=== PATIENT | male | born 1975 | race Two or more races ===

== ENCOUNTER 2024-05-26 10:49 | Outpatient (AMB) | payer MEDICAID, SELFPAY ==
[2024-05-26 10:54] VITALS: BP 136/88; PULSE 66; RESP 18; TEMP 36.2; O2SAT 97; BMI 32.6
--- NOTE | 2024-05-26 10:54 | PD.RESCLINIC ---
Vital Signs 05/26/24 10:54 Height 5 ft 11 in Height Method Stated Weight 106.311 kg Weight Measurement Method Standing Scale BMI 32.6 BP 136/88 H Blood Pressure Source Automatic Cuff Blood Pressure Location Left Upper Arm Position Sitting Respiration 18 Pulse 66 Pulse Source Monitor Temp 97.2 F Temp Source Oral Pulse Oximetry (%) 97 Oxygen Delivery Method Room Air Allergies/Meds Allergies & Medications Allergies No Known Allergies Allergy (Verified 05/26/24 10:55) Medication Reconciliation acamprosate 333 mg tablet,delayed release 666 mg (2 x 333 mg) PO TID #120 tabs 08/01/23 [Rx Confirmed 05/26/24] cetirizine 10 mg capsule (Zyrtec) 10 mg PO QDAY PRN allergy symptoms #30 caps 11/10/23 [Rx Confirmed 05/26/24] cholecalciferol (vitamin D3) 1,250 mcg (50,000 unit) capsule 1,250 mcg PO QWEEK #4 caps 01/23/24 [Rx Confirmed 05/26/24] fluticasone propionate 50 mcg/actuation nasal spray,suspension (Allergy Relief (fluticasone)) 2 spray intranasal QDAY #16 grams 05/26/24 [Rx] nadolol 20 mg tablet 20 mg PO QDAY #60 tabs 05/26/24 [Rx] pantoprazole 40 mg tablet,delayed release 40 mg PO BID 1 month #60 tabs 05/26/24 [Rx] MA Intake Visit Data Collection New Patient or Established: Established Patient (seen at [facility] within 3 years) Seen by Clinical Staff ONLY (RN/MA): No Pain Present Currently: No Pain scale:: 0 Pain Scale Used: Jiménez-Ward/Numerical [employer] Department Supervisor Required: No PCP or OBGYN visit in last 3 months: Yes Do You Feel Safe at Home: Yes Authorities Contacted: N/A Smoking Status Smoking Status: Never smoker Immunization / Flu Flu Vaccine in the Last 12 Months: No Flu Vaccine Exclusion Criteria: No Exclusion Criteria Past Medical History Past Medical History NEUROLOGIC: Negative Neurological Disorders or Seizures CARDIAC: Positive Hypertension; Negative Cardiac Disorders or Congestive Heart Failure RESPIRATORY: Negative Chronic Obstructive Pulmonary Disease (COPD) or Asthma GASTROINTESTINAL: Positive Gastrointestinal Disorders, Gastrointestinal Bleed and Esophageal Varices GENITOURINARY: Negative Genitourinary Disorders or Renal Disease ENDOCRINE: Negative Endocrine Disorders, Diabetes Mellitus Type 1 or Diabetes Mellitus Type 2 HEMATOLOGIC: Negative Blood Disorders or Sickle Cell Disease OTHER HISTORY: Negative Autoimmune Disease, Blood Transfusions, Anesthesia Reactions, MRSA, VRSA or Vancomycin-Resistant Enterococci Family History FAMILY HISTORY: Positive Family Respiratory Disorders and Family Cardiac Disorders; Negative Family Psychiatric Problems, Family Gastrointestinal Problems, Family Cancer, Family Surgery or Family Anesthesia Reaction Surgical History SURGICAL: Positive Abdominal Surgery; Negative Cardiac Surgery, Endocrine Surgery, Ear Surgery, Eye Surgery, Nose Surgery, Oral Surgery, Joint Replacement or Neurologic Surgery Social History SMOKING STATUS: Smoking status: Never smoker ALCOHOL: Alcohol Intake: Former (quit 6 months ago) ALCOHOL FREQUENCY: Alcohol Intake Frequency: 3 or More Drinks per Day HOUSING: Housing: House LIVES WITH: Lives With: Significant Other Patient Portal Questionaires Social History Living Situation History Housing: House Tobacco History Smoking Status: Never smoker Alcohol History Alcohol Intake: Former (quit 6 months ago) Alcohol Intake Frequency: 3 or More Drinks per Day Alcohol Intake Frequency Other:: 25 year Substance Use History Substance Use: daily marijuana Domestic Abuse History Do You Feel Safe at Home: Yes Review of Systems Report any current symptoms Only answer those that you have currently: Past Medical History Past Medical History Have you ever been diagnosed with any of the following: Neurological Problems Seizures: No Cardiology Problems Congestive Heart Failure: No Hypertension: Yes Respiratory Problems Chronic Obstructive Pulmonary Disease (COPD): No Asthma: No Stomache/Intestinal Problems Gastrointestinal Bleed: Yes Esophageal Varices: Yes Genital/Urinary Problems Renal Disease: No Endocrine Problems Diabetes Mellitus Type 1: No Diabetes Mellitus Type 2: No Blood Problems Sickle Cell Disease: No Other Problems Autoimmune Disease: No Blood Transfusions: No Anesthesia Reactions: No MRSA: No VRSA: No Vancomycin-Resistant Enterococci: No History of Present Illness HPI Narrative Patient is a 48-year-old male with past medical history of esophageal varices and seasonal allergies who came to the clinic just for follow-up from previous visits. Patient is doing well and is scheduled to see gastroenterology in [place] in a couple of weeks. He states that he discontinued Protonix for short period for a bowel study but off of the medication he continued to have significant amount of symptoms so he continued the medication once appropriate. He is still taking the nadolol as well for esophageal varices and I counseled him to follow-up with his GI doctor to see if he needs to continue that medication. Patient is 1 year off of alcohol and doing well without any kind of desire to drink. We will continue without acamprosate. Will order annual labs for physical exam. Objective/Exam Narrative Physical exam: GENERAL: Alert and oriented x 3. No acute distress. Well-nourished. EYES: EOMI. Anicteric. HEENT: Moist mucous membranes. No scleral icterus. No cervical lymphadenopathy. LUNGS: Clear to auscultation bilaterally. No accessory muscle use. CARDIOVASCULAR: Regular rate and rhythm. No murmur. No JVD. ABDOMEN: Soft, non-tender and non-distended. No palpable masses. EXTREMITIES: All 4 extremeties intact. No edema. Nontender. SKIN: No rashes or lesions. Warm. NEUROLOGIC: No focal neurological deficits. CN II-XII grossly intact, but not individually tested. PSYCHIATRIC: Cooperative. Appropriate mood and affect. Assessment & Plan Diagnosis / Problem List (1) Annual physical exam: Status: Acute Assessment & Plan: Patient is doing well without any complaints other than GERD like symptoms Plan: Continue with Protonix 40 Mg twice daily and nadolol for esophageal varices and GI bleed Follow-up with GI in regards to continuation of these medications Will order annual labs for the patient including CBC to assess for anemia, CMP to assess for liver enzymes, UA to assess for any proteinuria, vitamin D levels, TSH, A1c and lipid panel Follow-up in 2 weeks Orders: Orders CBC Today Comprehensive Metabolic Panel Today Z00.00 - Encounter for general adult medical examination without abnormal findings Vitamin D, 1,25-Dihydroxy* Today Z00.00 - Encounter for general adult medical examination without abnormal findings Ambulatory Hemoglobin A1C Today Urinalysis Today Z00.00 - Encounter for general adult medical examination without abnormal findings Vitamin D 25 Hydroxy Total Today Z00.00 - Encounter for general adult medical examination without abnormal findings Thyroid Stimulating Hormone Today Z00.00 - Encounter for general adult medical examination without abnormal findings Lipid Panel Today Z00.00 - Encounter for general adult medical examination without abnormal findings Office Procedures [facility] Level of Care Nursing/Assessment Patient Status: Established Patient Nursing Assessment/Reassessment: Medication Reconciliation, Update PMH in EMR and Vital Signs Coordination of Care: Complex Care and Chronic Disease 1-5, Consent,records obtained, informed consent, Education Simp Pt/Fam, Lab and Imaging orders and Staff clarify orders Established Patient Charge Established Patient Point Assignment: 100 Established Patient Point Charge: Level 3 (80-115)
== END 2024-05-26 11:29 | disposition home or self-care (01) ==
LOC: HODAHC 10:49
PROVIDERS: PCP Student in an Organized Health Care Education/Training Program; Referring Provider Student in an Organized Health Care Education/Training Program; Supervising Provider Internal Medicine; Visit Provider Student in an Organized Health Care Education/Training Program
DX: Z00.00 Encounter for general adult medical examination without abnormal findings (principal); Z87.19 Personal history of other diseases of the digestive system
CPT/HCPCS: 99213; G0463

== ENCOUNTER 2024-06-23 11:04 | Outpatient (AMB) | payer MEDICAID, SELFPAY ==
--- NOTE | 2024-06-23 11:17 | PD.RESCLINIC ---
Vital Signs 06/23/24 11:18 Height 1.8 m Height Method Stated Weight 107.161 kg Weight Measurement Method Standing Scale BMI 33.0 BP 130/78 Blood Pressure Source Automatic Cuff Blood Pressure Location Left Upper Arm Position Sitting Respiration 16 Pulse 62 Pulse Source Monitor Temp 97.2 F Temp Source Oral Pulse Oximetry (%) 96 Oxygen Delivery Method Room Air Allergies/Meds Allergies & Medications Allergies No Known Allergies Allergy (Verified 06/23/24 11:19) Medication Reconciliation acamprosate 333 mg tablet,delayed release 666 mg (2 x 333 mg) PO TID #120 tabs 08/01/23 [Rx Confirmed 06/23/24] cetirizine 10 mg capsule (Zyrtec) 10 mg PO QDAY PRN allergy symptoms #30 caps 11/10/23 [Rx Confirmed 06/23/24] fluticasone propionate 50 mcg/actuation nasal spray,suspension (Allergy Relief (fluticasone)) 2 spray intranasal BID #16 grams 05/26/24 [Rx Confirmed 06/23/24] nadolol 20 mg tablet 20 mg PO QDAY #60 tabs 05/26/24 [Rx Confirmed 06/23/24] pantoprazole 40 mg tablet,delayed release 40 mg PO BID 1 month #60 tabs 05/26/24 [Rx Confirmed 06/23/24] cholecalciferol (vitamin D3) 1,250 mcg (50,000 unit) capsule 1,250 mcg PO QWEEK #10 caps 06/23/24 [Rx] MA Intake Visit Data Collection New Patient or Established: Established Patient (seen at [facility] within 3 years) Seen by Clinical Staff ONLY (RN/MA): No Pain Present Currently: No Pain scale:: 0 Pain Scale Used: Jiménez-Ward/Numerical Bias Cutter Helper Required: No PCP or OBGYN visit in last 3 months: Yes Date of Last PCP or OBGYN visit: 06/23/24 Hx Now: No Do You Feel Safe at Home: Yes Authorities Contacted: N/A Smoking Status Smoking Status: Never smoker Immunization / Flu Flu Vaccine in the Last 12 Months: Yes Flu Vaccine Exclusion Criteria: No Exclusion Criteria Past Medical History Past Medical History NEUROLOGIC: Negative Neurological Disorders or Seizures CARDIAC: Positive Hypertension; Negative Cardiac Disorders or Congestive Heart Failure RESPIRATORY: Negative Chronic Obstructive Pulmonary Disease (COPD) or Asthma GASTROINTESTINAL: Positive Gastrointestinal Disorders, Gastrointestinal Bleed and Esophageal Varices GENITOURINARY: Negative Genitourinary Disorders or Renal Disease ENDOCRINE: Negative Endocrine Disorders, Diabetes Mellitus Type 1 or Diabetes Mellitus Type 2 HEMATOLOGIC: Negative Blood Disorders or Sickle Cell Disease OTHER HISTORY: Negative Autoimmune Disease, Blood Transfusions, Anesthesia Reactions, MRSA, VRSA or Vancomycin-Resistant Enterococci Family History FAMILY HISTORY: Positive Family Respiratory Disorders and Family Cardiac Disorders; Negative Family Psychiatric Problems, Family Gastrointestinal Problems, Family Cancer, Family Surgery or Family Anesthesia Reaction Surgical History SURGICAL: Positive Abdominal Surgery; Negative Cardiac Surgery, Endocrine Surgery, Ear Surgery, Eye Surgery, Nose Surgery, Oral Surgery, Joint Replacement or Neurologic Surgery Social History SMOKING STATUS: Smoking status: Never smoker ALCOHOL: Alcohol Intake: Former (quit 6 months ago) ALCOHOL FREQUENCY: Alcohol Intake Frequency: 3 or More Drinks per Day HOUSING: Housing: House LIVES WITH: Lives With: Significant Other Patient Portal Questionaires PHQ-9 PHQ-2 Over the last 2 weeks, how often have you been bothered by any of the following problems? 1. Little interest or pleasure in doing things: not at all 2. Feeling down, depressed, or hopeless: not at all Total score: 0 Depression screen completed yes Social History Living Situation History Housing: House Tobacco History Smoking Status: Never smoker Alcohol History Alcohol Intake: Former (quit 6 months ago) Alcohol Intake Frequency: 3 or More Drinks per Day Alcohol Intake Frequency Other:: 25 year Substance Use History Substance Use: daily marijuana Domestic Abuse History Do You Feel Safe at Home: Yes Review of Systems Report any current symptoms Only answer those that you have currently: Past Medical History Past Medical History Have you ever been diagnosed with any of the following: Neurological Problems Seizures: No Cardiology Problems Congestive Heart Failure: No Hypertension: Yes Respiratory Problems Chronic Obstructive Pulmonary Disease (COPD): No Asthma: No Stomache/Intestinal Problems Gastrointestinal Bleed: Yes Esophageal Varices: Yes Genital/Urinary Problems Renal Disease: No Endocrine Problems Diabetes Mellitus Type 1: No Diabetes Mellitus Type 2: No Blood Problems Sickle Cell Disease: No Other Problems Autoimmune Disease: No Blood Transfusions: No Anesthesia Reactions: No MRSA: No VRSA: No Vancomycin-Resistant Enterococci: No History of Present Illness HPI Narrative Mr. Krishnamurthy is a 48-year-old male with past medical history of cirrhosis complicated with esophageal varices requiring banding who has been compliant with nonalcohol use for more than 2 years. Patient is doing fairly well without complaints and states that he has recently been placed upon [facility]'s transplant list and that he is pending further workup along with assessment by their therapy group. He is pending an ultrasound of the liver in 2 days. Review of Systems Review of Systems Systems Reviewed: All systems reviewed, normal except as documented Objective/Exam Narrative Physical exam: GENERAL: Alert and oriented x 3. No acute distress. Well-nourished. EYES: EOMI. Anicteric. HEENT: Moist mucous membranes. No scleral icterus. No cervical lymphadenopathy. LUNGS: Clear to auscultation bilaterally. No accessory muscle use. CARDIOVASCULAR: Regular rate and rhythm. No murmur. No JVD. ABDOMEN: Soft, non-tender and non-distended. No palpable masses. EXTREMITIES: All 4 extremeties intact. No edema. Nontender. SKIN: No rashes or lesions. Warm. NEUROLOGIC: No focal neurological deficits. CN II-XII grossly intact, but not individually tested. PSYCHIATRIC: Cooperative. Appropriate mood and affect. Assessment & Plan Diagnosis / Problem List (1) Cirrhosis: Status: Acute Plan: Now on transplant list. Continued abstinence from alcohol. To have ultrasound in 2 days. (2) Esophageal varices: Status: Acute Assessment & Plan: Stable, no evidence of bleeding. (3) Vitamin D deficiency: Status: Acute Assessment & Plan: Vitamin D levels improved to 41.7 from 15.9 Plan: Will refill cholecalciferol 1250 mg to be taken once a week for the next 8 weeks (4) Annual physical exam: Status: Acute Assessment & Plan: Patient's labs are reviewed Fasting blood glucose 104 and A1c of 5.7 Alkaline phosphatase mildly elevated at 204 Plan: Continued improvement in patient's labs with no dyslipidemia or diabetes noted. Vitamin D level normal at 41.7 but will continue to replete Baseline creatinine 0.9 All baseline health parameters appear to be good TSH within normal limits Will follow-up in 3 months or as needed Physician Billing Established Patient Established Patient: E/M Level 3-CPT 22052 Office Procedures [facility] Level of Care Nursing/Assessment Patient Status: Established Patient Nursing Assessment/Reassessment: BP Monitoring, Medication Reconciliation, Update PMH in EMR and Vital Signs Coordination of Care: Complex Care and Chronic Disease 1-5, Consent,records obtained, informed consent, Education Simp Pt/Fam, Lab and Imaging orders and Staff clarify orders Established Patient Charge Established Patient Point Assignment: 115 Established Patient Point Charge: EP Level 3 (33-115)
[2024-06-23 11:18] VITALS: BP 130/78; PULSE 62; RESP 16; TEMP 36.2; O2SAT 96; BMI 33.0
== END 2024-06-23 12:07 | disposition home or self-care (01) ==
LOC: HODAHC 11:04
PROVIDERS: PCP Student in an Organized Health Care Education/Training Program; Referring Provider Student in an Organized Health Care Education/Training Program; Supervising Provider Internal Medicine; Visit Provider Student in an Organized Health Care Education/Training Program
DX: K74.60 Unspecified cirrhosis of liver (principal); I85.00 Esophageal varices without bleeding; Z76.82 Awaiting organ transplant status; E55.9 Vitamin D deficiency, unspecified
CPT/HCPCS: 99213; G0463

== ENCOUNTER → 2024-07-02 | Outpatient (CLI) | payer MEDICAID, SELFPAY ==
--- NOTE | 2024-07-02 09:45 | XR_ITS ---
Examination: Abdomen sonogram, complete Date and time of exam: July 02, 2024 0957 hours INDICATIONS: Diagnosis cirrhosis one year ago. Technique: Multiple real-time grayscale transabdominal sonographic images of the abdomen have been obtained. Findings: Normal gallbladder Common bile duct 0.4 cm Pancreas obscured by bowel gas Mid and distal aorta visualized not enlarged Liver 15.3 cm irregular contour no focal liver lesions fatty infiltration is present Normal hepatopedal portal venous flow Patent IVC Right kidney 14.5 x 5.7 x 5.9 cm cortex 1.6 cm Left kidney 13.1 x 5.7 x 5.4 cm renal cortex 2.9 cm Moderate renal parenchymal scar formation No hydronephrosis Spleen 11.9 cm IMPRESSION: Normal gallbladder Cirrhosis no focal liver lesions Moderate bilateral renal parenchymal scar formation
== END | disposition home or self-care (01) ==
LOC: CDIM 09:33
PROVIDERS: Referring Provider Internal Medicine Gastroenterology; Visit Provider Internal Medicine Gastroenterology
DX: K74.60 Unspecified cirrhosis of liver (principal); N28.89 Other specified disorders of kidney and ureter
CPT/HCPCS: 76700

== ENCOUNTER 2024-11-19 15:36 | Outpatient (AMB) | payer MEDICAID, SELFPAY ==
[2024-11-19 15:50] VITALS: BP 134/82; PULSE 63; RESP 18; TEMP 36.8; O2SAT 96
--- NOTE | 2024-11-19 15:50 | ACNOTE_ITS ---
Vital Signs 11/19/24 15:50 Weight 116.176 kg Weight Measurement Method Standing Scale BP 134/82 H Blood Pressure Source Automatic Cuff Blood Pressure Location Right Upper Arm Position Sitting Respiration 18 Pulse 63 Pulse Source Monitor Temp 98.3 F Temp Source Temporal Artery Scan Pulse Oximetry (%) 96 Oxygen Delivery Method Room Air Allergies/Meds Allergies & Medications Allergies No Known Allergies Allergy (Verified 11/19/24 15:53) Medication Reconciliation acamprosate 333 mg tablet,delayed release 666 mg (2 x 333 mg) PO TID #120 tabs 08/01/23 [Rx Confirmed 11/19/24] cetirizine 10 mg capsule (Zyrtec) 10 mg PO QDAY PRN allergy symptoms #30 caps 11/10/23 [Rx Confirmed 11/19/24] fluticasone propionate 50 mcg/actuation nasal spray,suspension (Allergy Relief (fluticasone)) 2 spray intranasal BID #16 grams 05/26/24 [Rx Confirmed 11/19/24] cholecalciferol (vitamin D3) 1,250 mcg (50,000 unit) capsule 1,250 mcg PO QWEEK #10 caps 06/23/24 [Rx Confirmed 11/19/24] nadolol 20 mg tablet 20 mg PO QDAY #30 tabs 07/13/24 [Rx Confirmed 11/19/24] pantoprazole 40 mg tablet,delayed release 40 mg PO QDAY esophageal varices 1 month #30 tabs 11/19/24 [Rx] spironolactone 25 mg tablet 25 mg PO QDAY Cirrhosis 1 month #30 tabs 11/19/24 [Rx] MA Intake Visit Data Collection New Patient or Established: Established Patient (seen at [facility] within 3 years) Seen by Clinical Staff ONLY (RN/MA): No Pain Present Currently: No Pain scale:: 0 Pain Scale Used: Jiménez-Ward/Numerical S[employer] Operator Required: No PCP or OBGYN visit in last 3 months: No Hx Now: No Do You Feel Safe at Home: Yes Authorities Contacted: N/A Smoking Status Smoking Status: Never smoker Immunization / Flu Flu Vaccine in the Last 12 Months: No Flu Vaccine Exclusion Criteria: No Exclusion Criteria Past Medical History Past Medical History NEUROLOGIC: Negative Neurological Disorders or Seizures CARDIAC: Positive Hypertension; Negative Cardiac Disorders or Congestive Heart Failure RESPIRATORY: Negative Chronic Obstructive Pulmonary Disease (COPD) or Asthma GASTROINTESTINAL: Positive Gastrointestinal Disorders, Gastrointestinal Bleed and Esophageal Varices GENITOURINARY: Negative Genitourinary Disorders or Renal Disease ENDOCRINE: Negative Endocrine Disorders, Diabetes Mellitus Type 1 or Diabetes Mellitus Type 2 HEMATOLOGIC: Negative Blood Disorders or Sickle Cell Disease OTHER HISTORY: Negative Autoimmune Disease, Blood Transfusions, Anesthesia Reactions, MRSA, VRSA or Vancomycin-Resistant Enterococci Family History FAMILY HISTORY: Positive Family Respiratory Disorders and Family Cardiac Disorders; Negative Family Psychiatric Problems, Family Gastrointestinal Problems, Family Cancer, Family Surgery or Family Anesthesia Reaction Surgical History SURGICAL: Positive Abdominal Surgery; Negative Cardiac Surgery, Endocrine Surgery, Ear Surgery, Eye Surgery, Nose Surgery, Oral Surgery, Joint Replacement or Neurologic Surgery Social History SMOKING STATUS: Smoking status: Never smoker ALCOHOL: Alcohol Intake: Former (quit 6 months ago) ALCOHOL FREQUENCY: Alcohol Intake Frequency: 3 or More Drinks per Day HOUSING: Housing: House LIVES WITH: Lives With: Significant Other Patient Portal Questionaires PHQ-9 PHQ-2 Over the last 2 weeks, how often have you been bothered by any of the following problems? 1. Little interest or pleasure in doing things: not at all Social History Living Situation History Housing: House Tobacco History Smoking Status: Never smoker Alcohol History Alcohol Intake: Former (quit 6 months ago) Alcohol Intake Frequency: 3 or More Drinks per Day Alcohol Intake Frequency Other:: 25 year Substance Use History Substance Use: daily marijuana Domestic Abuse History Do You Feel Safe at Home: Yes Review of Systems Report any current symptoms Only answer those that you have currently: Past Medical History Past Medical History Have you ever been diagnosed with any of the following: Neurological Problems Seizures: No Cardiology Problems Congestive Heart Failure: No Hypertension: Yes Respiratory Problems Chronic Obstructive Pulmonary Disease (COPD): No Asthma: No Stomache/Intestinal Problems Gastrointestinal Bleed: Yes Esophageal Varices: Yes Genital/Urinary Problems Renal Disease: No Endocrine Problems Diabetes Mellitus Type 1: No Diabetes Mellitus Type 2: No Blood Problems Sickle Cell Disease: No Other Problems Autoimmune Disease: No Blood Transfusions: No Anesthesia Reactions: No MRSA: No VRSA: No Vancomycin-Resistant Enterococci: No History of Present Illness HPI Narrative Patient is a 48 year old male with a past medical history of 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 11/19/2024: Patient is still on the transplant list and intially was placed with [facility] but seems to been some confusion as he states there as been changes from [facility] to [facility] to now [facility]. Patient stated he is not entirely where he shiva stands on the transplant list. NO changes made to his medication by his high school director. Patient continues to be on Protonix 40 mg BID and Nadolol 20 mg PO once daily. Patinet denied any melena, hematochezia, or hematemsis. Denied any lower peripheral edema or abdominal swelling. Decrease Protonix from 40 mg PO BID-->to Protonix 40 mg Once daily, continue nadolol, and start spironolactone. No lasix on board as no edema noted. Monitor for signs of encephalopathy. Home systolic blood pressure 130s. Review of Systems Review of Systems Narrative Review of Systems: General appearance: NO weight change, NO fatigue, NO weakness, NO fever, NO chills, NO night sweats, No cough Skin: NO rash, NO itching, NO sores, NO moles HEENT: NO Trauma, NO nausea, NO vomiting, NO visual changes, NO blurry vision, NO double vision, NO tinnitus, NO vertigo, NO ear discharge, NO rhinorrhea, NO stuffiness, NO sneezing, NO allergy, NO epistaxis. NO Hoarseness, NO sore throat, NO swollen neck. Cardiac: NO Palpitations, NO dyspnea on exertion, NO orthopnea, NO paroxysmal nocturnal dyspnea, NO edema Respiratory: NO Shortness of Breath, NO Wheezing, NO Cough, NO Sputum, NO h emoptysis GI:NO appetite, NO nausea, NO vomiting, NO dysphagia, NO changes in bowel frequency, NO stool color, NO diarrhea, NO constipation, NO hemetemesis, NO hemorrhoids, NO melena, NO hematechezia, NO abdominal pain, NO jaundice Renal: NO frequency, NO hesitancy, NO urgency, NO hematuria, NO nocturia, NO incontinence MSK: NO muscle weakness, NO gout, NO arthritis, NO muscle stiffness Neuro: NO headaches, NO tremors, NO weakness, NO paralysis, NO seizures, NO loss of consciousness, NO numbness. Hem: NO anemia, NO easy bruising/bleeding, NO petechiae, NO purpura Endo: NO heat/cold intolerance, NO excessive sweating, NO polyuria, NO polydipsia, NO polyphagia, NO thyroid problems, NO diabetes Pysch: NO mood, NO anxiety, NO depression Objective/Exam Narrative Physical exam: Vitals: 134/82, HR 63, RR 18 General Appearance: Alert and Orientated x3, well-nourished male who is sitting on exam room Thorax/Lungs: Symmetrical with good expansion. Chest and back non-tender. Lungs resonant to percussion. Breath sounds vesicular without crackles, wheezes, or rhonchi Cardiovascular/Peripheral Vascular: No jugular venous distention noted. S1 and S2 heart sounds regular, no murmurs or extra heart sounds auscultated. No peripheral edema noted. Abdomen: Bowel sounds are active. No tenderness to deep or light palpation. NO ascites noted, Negative fluid wave test. No shifting dullness. Assessment & Plan Diagnosis / Problem List (1) Cirrhosis: Status: Acute Qualifiers: Ascites presence: without ascites Hepatic cirrhosis type: alcoholic cirrhosis Qualified Code(s): K70.30 - Alcoholic cirrhosis of liver without ascites Assessment & Plan: Patient has a past medical history of decompensated cirrhosis with esophageal varies s/p band ligation. 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 NO changes made to his medication. Last band ligation >30 months ([address] De Guzman). Reduced Protonix from BID to once daily. Add spironolactone. Child-Downs Score: Class A, Life Expectancy 15-20 years, wilmar-operative mortality 10%. MELDNa-8 points, <2%, 90 day mortality Plan: -CMP Lab [facility] -Start Spironolactone -No Lasix, does not appear fluid overloaded -NO Lactulose, no encephalopathy history -Patient is following with Technical Sales Support Specialist ([facility]) (2) Esophageal varices in alcoholic cirrhosis: Status: Acute Assessment & Plan: Patient has a past medical history of Esophageal Varices stage III status post band ligation (2023). Patient denied hematemesis. No alcohol Use. Patient denies any dizziness of syncope. Plan: Continue Nadolol 20 mg Qday (3) Vitamin D deficiency: Status: Acute Assessment & Plan: Vitamin D levels within normal range. Continue to take over the counter vitamins. Patient completed vitamin D supplements. 06/2024: Total 1,25 Dihydroxy vitamin 39 (within limits), 1,25 Dihydroxy, Vitamin D2 <10, 1,25 Vitamin D3 37, Vitmain D, 25 hydroxy 41.7 within normal limits. Plan: Discontinue cholecalciferol 1250 mg. Plan Follow up with [facility]: CBC, CMP and Iron panel, Ferritin, - The patient's plan was discussed with attending Dr. Mahin Lang MD PGY2 Internal Medicine Additional Assessment Attending note: I, Neo Tobias MD, attest that I was physically present for the mccain portions of the service completed via telehealth, and I reviewed and discussed the case with the resident and agree with the resident's plans of care as documented above. Neo Tobias MD Physician Billing Established Patient Established Patient: E/M Level 3-CPT 40882 Office Procedures [facility] Level of Care Nursing/Assessment Patient Status: Established Patient Nursing Assessment/Reassessment: Medication Reconciliation, Update PMH in EMR and Vital Signs Coordination of Care: Complex Care and Chronic Disease 1-5, Consent,records obtained, informed consent, Education Simp Pt/Fam and Staff clarify orders Established Patient Charge Established Patient Point Assignment: 85 Established Patient Point Charge: EP Level 3 (80-115)
== END 2024-11-19 17:02 | disposition home or self-care (01) ==
LOC: HODAHC 15:36
PROVIDERS: Supervising Provider Internal Medicine; Visit Provider Student in an Organized Health Care Education/Training Program
DX: K70.30 Alcoholic cirrhosis of liver without ascites (principal); I85.10 Secondary esophageal varices without bleeding; E55.9 Vitamin D deficiency, unspecified
CPT/HCPCS: 99213; G0463